=== PATIENT | male | born 2000 | race Caucasian/White ===

== ENCOUNTER → 2022-09-18 | Outpatient (CLI) | payer OTHER | LOC: M WUC 13:26 | PROVIDERS: ATTEND Internal Medicine | DX: S22.32XD Fracture of one rib, left side, subsequent encounter for fracture with routine healing (principal) ==

== ENCOUNTER 2023-09-11 09:13 | Emergency (ER) | payer OTHER ==
[~2023-09-11] VITALS: Ht 182.9 cm; Wt 81.2 kg
[2023-09-11 11:37] VITALS: BP 132/80; TEMP 97.8; O2SAT 99
== END 2023-09-11 11:38 | disposition home or self-care (01) ==
LOC: M ED 09:13
DX: R07.89 Other chest pain (principal); W50.0XXA Accidental hit or strike by another person, initial encounter; Y93.22 Activity, ice hockey

== ENCOUNTER → 2024-11-17 | Outpatient (CLI) | payer OTHER | LOC: M SOG 07:50 | PROVIDERS: ATTEND Physician Assistant | DX: M25.512 Pain in left shoulder (principal) ==

== ENCOUNTER → 2025-01-13 | Outpatient (CLI) | payer OTHER | LOC: M SOG 07:49 | PROVIDERS: ATTEND Physician Assistant | DX: M54.50 Low back pain, unspecified (principal); M43.17 Spondylolisthesis, lumbosacral region ==